=== PATIENT | female | born 1965 | race Two or more races ===

== ENCOUNTER 2018-09-03 10:16 | Outpatient (CLI) | payer OTHER | END 2018-09-03 10:30 | disposition home or self-care (01) | LOC: RAD 10:16 | DX: M50.021 Cervical disc disorder at C4-C5 level with myelopathy (principal); M50.022 Cervical disc disorder at C5-C6 level with myelopathy; M50.023 Cervical disc disorder at C6-C7 level with myelopathy ==

== ENCOUNTER 2020-11-20 09:54 | Outpatient (CLI) | payer OTHER | END 2020-11-20 10:03 | disposition home or self-care (01) | LOC: RX STUDY 09:54 | PROVIDERS: ATTEND Specialist | DX: J98.6 Disorders of diaphragm (principal) ==

== ENCOUNTER 2023-04-15 11:32 | Outpatient (CLI) | payer OTHER | END 2023-04-15 11:39 | disposition home or self-care (01) | LOC: SONOGRAMA 11:32 | PROVIDERS: ATTEND Internal Medicine Gastroenterology | DX: R10.11 Right upper quadrant pain (principal) ==